=== PATIENT | female | born 1940 | race Caucasian/White ===

== ENCOUNTER → 2021-02-20 | Outpatient (CLI) | payer MEDICARE ==
--- NOTE | 2021-02-20 09:08 | REPVR ---
PROCEDURE INFORMATION: Exam: CT Head Without Contrast Exam date and time: 02/20/2021 8:46 AM Age: 80 years old Clinical indication: Screening exam; Additional info: Alzheimer's disease with late onset TECHNIQUE: Imaging protocol: Computed tomography of the head without contrast. Radiation optimization: All CT scans at this facility use at least one of these dose optimization techniques: automated exposure control; mA and/or kV adjustment per patient size (includes targeted exams where dose is matched to clinical indication); or iterative reconstruction. COMPARISON: No relevant prior studies available. FINDINGS: Brain: There is no acute intracranial hemorrhage. There is lucency in the cerebral white matter, likely microvascular disease although non-specific. Jimenez white differentiation is intact. There are no extra-axial fluid collections. No evidence of mass. There is no mass effect or midline shift. Cerebral ventricles: The ventricles and sulci are enlarged, consistent with moderate volume loss / atrophy. No hydrocephalus. Bones/joints: No acute fracture. Paranasal sinuses: There is left sphenoid sinus retention cyst or polyp. Mastoid air cells: No significant mastoid effusion. Vasculature: There is vascular calcification. Soft tissues: Unremarkable as visualized. IMPRESSION: 1. No evidence of acute intracranial abnormality. No evidence of acute infarction, hemorrhage, or mass. 2. Atrophy and microvascular disease. Electronically signed by: Betsey Simmons On 02/20/2021 09:07:10 AM
== END ==
LOC: M RAD 08:13
DX: G30.1 Alzheimer's disease with late onset (principal); F02.81 Dementia in other diseases classified elsewhere, unspecified severity, with behavioral disturbance

== ENCOUNTER 2021-04-25 07:22 | Emergency (ER) | payer MEDICARE ==
[~2021-04-25] VITALS: Ht 162.6 cm; Wt 63.6 kg
[2021-04-25] MEDS ORDERED: OMEP-218 PO (07:55)
[2021-04-25] MEDS ORDERED: ACET-907 PO (07:55)
[2021-04-25] MEDS ORDERED: QUET25TA3 PO (07:55)
[2021-04-25] MEDS ORDERED: ATOR1TAB19 PO (07:55)
[2021-04-25] MEDS ORDERED: AMLO1TAB24 PO (07:55)
[2021-04-25] MEDS ORDERED: VITA1CAP25 PO (07:55)
[2021-04-25 08:09] LABS: BASO % 0.4 % (0.0-1.0); EOS # 0.1 10^3/uL (0.0-0.5); EOS % 0.9 % (0.0-3.0); HEMATOCRIT 35.8 % (36.0-47.0); HEMOGLOBIN 11.2 g/dl (12.0-15.5); LYMPH # 1.2 10^3/uL (1.5-5.0); LYMPH % 12.7 % (24.0-44.0); MEAN CORPUSCULAR HEMOGLOBIN 29.4 pg (27.0-33.0); MEAN CORPUSCULAR HGB CONC 31.3 g/dl (32.0-36.5); MONO # 0.8 10^3/uL (0.0-0.8); MONO % 7.9 % (2.0-8.0); NEUTROPHILS # 7.5 10^3/uL (1.5-8.5); NEUTROPHILS % 77.2 % (36.0-66.0); PLATELET COUNT, AUTOMATED 301 10^3/uL (150-450); RED BLOOD COUNT 3.81 10^6/uL (4.00-5.40); WHITE BLOOD COUNT 9.7 10^3/uL (4.0-10.0)
--- NOTE | 2021-04-25 08:27 | REPVR ---
PROCEDURE INFORMATION: Exam: CT Head Without Contrast Exam date and time: 04/25/2021 8:03 AM Age: 80 years old Clinical indication: Injury or trauma; Fall; Blunt trauma (contusions or hematomas) TECHNIQUE: Imaging protocol: Computed tomography of the head without contrast. Radiation optimization: All CT scans at this facility use at least one of these dose optimization techniques: automated exposure control; mA and/or kV adjustment per patient size (includes targeted exams where dose is matched to clinical indication); or iterative reconstruction. COMPARISON: CT Head without contrast 02/20/2021 8:33 AM FINDINGS: Brain: There is no acute intracranial abnormality. Moderate small vessel ischemic changes are seen. There is no mass, midline shift, or mass effect. Jimenez-white matter differentiation is preserved. There is no evidenc old lacunar infarct in left thalamus. e of hemorrhage. There is no extra-axial fluid collection. Basal cisterns are patent. Cerebral ventricles: Moderate prominence of ventricles and sulci representing volume loss. Paranasal sinuses: Visualized sinuses are unremarkable. No fluid levels. Mastoid air cells: Visualized mastoid air cells are well aerated. Bones/joints: Unremarkable. No acute fracture. Soft tissues: Unremarkable. IMPRESSION: 1. Moderate volume loss and small vessel ischemic changes. 2. No acute intracranial abnormality. Electronically signed by: Michelle Schroeder On 04/25/2021 08:27:29 AM
--- NOTE | 2021-04-25 08:29 | REPVR ---
PROCEDURE INFORMATION: Exam: CT Cervical Spine Without Contrast Exam date and time: 04/25/2021 8:03 AM Age: 80 years old Clinical indication: Injury or trauma; Fall; Blunt trauma TECHNIQUE: Imaging protocol: Computed tomography images of the cervical spine without contrast. Radiation optimization: All CT scans at this facility use at least one of these dose optimization techniques: automated exposure control; mA and/or kV adjustment per patient size (includes targeted exams where dose is matched to clinical indication); or iterative reconstruction. COMPARISON: CT Head without contrast 02/20/2021 8:33 AM FINDINGS: Bones/joints: No acute fracture. Minimal anterolisthesis of C2 on C3 and C7 on T1. The diffuse demineralization of the bones. Degenerative changes with mild anterior osteophyte formation, loss of disc spaces, and facet joint arthropathy. Partial bony union at C4/C5. Discs/Spinal canal/Neural foramina: Mild posterior disc osteophyte formation at multiple levels causing minimal indentation on thecal sac. The the the the the. The Lungs: Lung apices are normal. Soft tissues: Unremarkable. IMPRESSION: No acute findings. Electronically signed by: Michelle Schroeder On 04/25/2021 08:29:19 AM
[2021-04-25 08:36] LABS: ALT/SGPT 20 U/L (12-78); BILIRUBIN,DIRECT < 0.1 MG/DL (0.0-0.2); BILIRUBIN,TOTAL 0.7 MG/DL (0.2-1.0); BLOOD UREA NITROGEN 15 MG/DL (7-18); CARBON DIOXIDE LEVEL 28 MEQ/L (21-32); CHLORIDE LEVEL 110 MEQ/L (98-107); CK-MB VALUE MASS < 1.0 NG/ML (<3.6); CPK CREATINE PHOSPHOKINASE 72 U/L (26-192); CREATININE FOR GFR 0.89 MG/DL (0.55-1.30); FREE T4 1.23 NG/DL (0.76-1.46); GLOMERULAR FILTRATION RATE > 60.0 (>32); GLUCOSE, FASTING 98 MG/DL (70-100); LIPASE 57 U/L (73-393); MB/CK RELATIVE INDEX 1.39 (< OR =4); POTASSIUM SERUM 4.3 MEQ/L (3.5-5.1); SODIUM LEVEL 144 MEQ/L (136-145); TOTAL PROTEIN 6.7 GM/DL (6.4-8.2); TROPONIN I < 0.02 NG/ML (< 0.10)
--- NOTE | 2021-04-25 08:42 | REP ---
INDICATION: trauma COMPARISON: None. TECHNIQUE: Internal rotation, external rotation, and Y view. FINDINGS: Age-related osteopenia and degenerative changes are appreciated. The acromioclavicular and glenohumeral joints are intact. There is no evidence for acute fracture or dislocation. Subacromial space is normal. No periarticular calcifications or loose bodies are identified. IMPRESSION: Age-related changes. No acute fracture or dislocation. <Electronically signed by Cosme Castellanos > 04/25/21 [id number]
--- NOTE | 2021-04-25 08:43 | REP ---
INDICATION: trauma COMPARISON: None. TECHNIQUE: Frontal view of the pelvis with neutral and frog lateral views of the left hip. FINDINGS: Age-related osteopenia and degenerative changes are noted throughout the visualized lower lumbar spine, pelvis and hips. No obvious acute fracture or dislocation. Surrounding soft tissues are unremarkable. IMPRESSION: No acute fracture or dislocation. <Electronically signed by Cosme Castellanos > 04/25/21 [id number]
--- NOTE | 2021-04-25 08:43 | REP ---
INDICATION: CHEST PAIN. COMPARISON: 11/29/2013 TECHNIQUE: PA and lateral FINDINGS: There is mild cardiomegaly. This has developed since the last exam. There is a sub cm sized potential new nodule in the left upper lobe. Lung ohara are otherwise stable and clear. The pleural angles are sharp. There is no significant change in appearance of the osseous structures. IMPRESSION: 1. Possible new left lung nodule as described above. This warrants CT. 2. Cardiomegaly <Electronically signed by Ron Varghese > 04/25/21 [id number]
[2021-04-25] MEDS ORDERED: ISOVUE-370 76% 100ML VIAL As Ordered ONE (08:57)
[2021-04-25 09:21] VITALS: O2SAT 98
--- NOTE | 2021-04-25 09:28 | REP ---
INDICATION: chest pain eval lung nodule. COMPARISON: None. TECHNIQUE: Contrast dose: 75 ML of Isovue [address] technique: Helical scanning is acquired and overlapping 1.5 mm and contiguous 3 mm axial images are reformatted. In addition, maximum intensity projection and multiplanar re-formation images are generated in sagittal and coronal imaging projections. FINDINGS: There is good opacification in the pulmonary arterial tree. There is no evidence of vessel cut off or filling defect to suggest pulmonary embolus. Homogeneous opacity is seen in the thoracic aorta. There is no evidence of aneurysm or dissection. There is no evidence of pleural or pericardial effusion. There is a nodule along the posterior aspect of the left thyroid gland at the thoracic inlet. No thoracic adenopathy is seen. There is mild cardiomegaly. Lung window settings demonstrate there is a zone of discoid atelectasis in the right middle lobe. Minimal subsegmental atelectasis is seen in the right lower lobe posteriorly. No infiltrate, mass, or significant pulmonary nodule is appreciated. No bony destructive lesion is seen. In the upper abdomen, normal adrenal glands are observed. The visualized upper abdominal structures are unremarkable. There is a dextroconvex thoracic curvature. IMPRESSION: No CT evidence of pulmonary embolus. Cardiomegaly. Scoliosis. Otherwise no acute disease. <Electronically signed by Jesus Sears > 04/25/21 [id number]
[2021-04-25] MEDS ORDERED: ACETAMINOPHEN TAB 650MG DOSE (2X325MG) PO ONE (09:35)
--- NOTE | 2021-04-25 11:24 | ECGEPIP ---
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
--- NOTE | 2021-04-25 11:25 | ECGEPIP ---
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
[2021-04-25 14:05] LABS: CK-MB VALUE MASS 3.8 NG/ML (<3.6); MB/CK RELATIVE INDEX 3.25 (< OR =4); TROPONIN I 0.02 NG/ML (< 0.10)
[2021-04-25] MEDS ORDERED: QUEtiapine FUMARATE 12.5 MG HALF-TAB PO ONE (15:00)
[2021-04-25 16:00] VITALS: BP 138/74
--- NOTE | 2021-04-26 17:54 | ECGEPIP ---
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
== END 2021-04-25 16:18 | disposition home or self-care (01) ==
LOC: M ED 07:22 → EDBD 07:22 → M ED 16:18
DX: R07.9 Chest pain, unspecified (principal); I44.7 Left bundle-branch block, unspecified; M25.512 Pain in left shoulder; M25.552 Pain in left hip; I10 Essential (primary) hypertension; K21.9 Gastro-esophageal reflux disease without esophagitis; G30.9 Alzheimer's disease, unspecified; I51.7 Cardiomegaly; M41.9 Scoliosis, unspecified; Z88.0 Allergy status to penicillin; Z88.8 Allergy status to other drugs, medicaments and biological substances
CPT/HCPCS: 36415; 70450; 71046; 71275; 72125; 73030; 73502; 80048; 80076; 82550; 82553; 83690; 84439; 84443; 84484; 85025; 93005; 93041; 94760; 99285; Q9967

== ENCOUNTER → 2021-05-30 | Outpatient (CLI) | payer MEDICARE ==
[~2021-05-30] MED LIST: ACET-907 PO; AMLO1TAB24 PO; ATOR1TAB19 PO; OMEP-218 PO; QUET25TA3 PO; VITA1CAP25 PO
--- NOTE | 2021-05-30 12:14 | REP ---
INDICATION: NEOPLASM UNCERTAIN BEHAVIOR OF TRACHEA/BRONCH/LUNG COMPARISON: 04/25/2021 a contrast-enhanced CT angio chest. TECHNIQUE: Standard helical technique without intravenous contrast. FINDINGS: Allowing for the differences in the technical factors between the examinations the mediastinum and pulmonary candy appear stable. There are no pleural or pericardial effusions. Respiratory motion artifact obscures the detail on the imaged upper abdomen. No significant changes evident. There is no significant change in appearance of the imaged osseous structures. Evaluation of the lung ohara shows a pleural-based 8 mm size right lower lobe nodule previously obscured by respiratory motion artifact. There is a large but partially obscured spiculated pleural based nodule in the right upper lobe which measures approximately 1.8 by 1.9 cm. This represents a change compared to the prior exam. Respiratory motion artifact could obscure multiple smaller nodules. IMPRESSION: 1. New spiculated right upper lobe nodule as described above. 2. Right lower lobe pleural base nodule as described above. 3. Other findings and limitations as described above. 4. Repeat with contrast-enhanced chest CT and elimination of motion artifact. 5. Inflammatory versus neoplastic change. Consider CT-PET. <Electronically signed by Ron Varghese > 05/30/21 [id number]
== END ==
LOC: M PLAIMG 09:59
PROVIDERS: ATTEND Family Medicine
DX: D38.1 Neoplasm of uncertain behavior of trachea, bronchus and lung (principal)

== ENCOUNTER 2021-09-04 15:23 | Emergency (ER) | payer MEDICARE ==
[~2021-09-04] VITALS: Ht 162.6 cm; Wt 68.2 kg
[~2021-09-04 15:23] MED LIST changes: +QUET1TAB17 PO; -QUET25TA3 PO
[2021-09-04] MEDS ORDERED: NS 500 ML IV ONE (16:00)
[2021-09-04 16:41] LABS: BASO % 0.7 % (0.0-1.0); EOS # 0.1 10^3/uL (0.0-0.5); EOS % 1.4 % (0.0-3.0); HEMATOCRIT 42.7 % (36.0-47.0); HEMOGLOBIN 13.7 g/dl (12.0-15.5); LYMPH # 1.5 10^3/uL (1.5-5.0); LYMPH % 19.8 % (24.0-44.0); MEAN CORPUSCULAR HEMOGLOBIN 29.7 pg (27.0-33.0); MEAN CORPUSCULAR HGB CONC 32.1 g/dl (32.0-36.5); MEAN CORPUSCULAR VOLUME 92.4 fl (80.0-96.0); MONO # 0.7 10^3/uL (0.0-0.8); MONO % 9.3 % (2.0-8.0); NEUTROPHILS # 5.2 10^3/uL (1.5-8.5); NEUTROPHILS % 68.3 % (36.0-66.0); PLATELET COUNT, AUTOMATED 347 10^3/uL (150-450); RED BLOOD COUNT 4.62 10^6/uL (4.00-5.40); WHITE BLOOD COUNT 7.6 10^3/uL (4.0-10.0)
[2021-09-04 16:42] LABS: BASO # 0.1 10^3/uL (0.0-0.2)
[2021-09-04] MEDS ORDERED: LORazepam 2 MG/ML VIAL IV STA ×2 (16:55→17:33)
[2021-09-04 17:16] LABS: RSV AMPLIFICATION NEGATIVE (NEGATIVE)
--- NOTE | 2021-09-04 17:21 | REP ---
INDICATION: abdominal pain. COMPARISON: 04/25/2021 latest prior TECHNIQUE: Portable FINDINGS: The technique utilized in obtaining the radiograph has magnified the cardiac silhouette and accentuated the interstitial markings. Cardiomediastinal silhouette lung ohara are unchanged. There are no acute patchy parenchymal opacities or pleural effusions. There is mild to moderate cardiomegaly accentuated by technique but the left ventricular configuration status quo. There is no significant change in appearance of the lung bases. IMPRESSION: Stable appearing chronic changes. <Electronically signed by Ron Varghese > 09/04/21 [id number]
[2021-09-04 17:42] LABS: ALBUMIN 3.8 GM/DL (3.2-5.2); ALT/SGPT 27 U/L (12-78); AMYLASE 56 U/L (25-115); BILIRUBIN,DIRECT 0.2 MG/DL (0.0-0.2); BILIRUBIN,TOTAL 0.9 MG/DL (0.2-1.0); CK-MB VALUE MASS < 1.0 NG/ML (<3.6); CPK CREATINE PHOSPHOKINASE 58 U/L (26-192); LIPASE 51 U/L (73-393); MB/CK RELATIVE INDEX 1.72 (< OR =4); TOTAL PROTEIN 8.5 GM/DL (6.4-8.2); TROPONIN I 0.03 NG/ML (< 0.10)
[2021-09-04] MEDS ORDERED: ISOVUE-370 76% 100ML VIAL As Ordered ONE (17:54)
[2021-09-04 18:07] VITALS: BP 169/95
--- NOTE | 2021-09-04 18:21 | REPVR ---
PROCEDURE INFORMATION: Exam: CT Abdomen And Pelvis With Contrast Exam date and time: 09/04/2021 6:01 PM Age: 81 years old Clinical indication: Abdominal pain; Generalized TECHNIQUE: Imaging protocol: Computed tomography of the abdomen and pelvis with contrast. Radiation optimization: All CT scans at this facility use at least one of these dose optimization techniques: automated exposure control; mA and/or kV adjustment per patient size (includes targeted exams where dose is matched to clinical indication); or iterative reconstruction. Contrast material: ISOVUE 370; Contrast volume: 100 ml; Contrast route: INTRAVENOUS (IV); COMPARISON: CR Hip,AP,LAT to include Pelvis LEFT 04/25/2021 8:02 AM FINDINGS: Lungs: No suspicious mass or airspace process in the visualized lung bases. Liver: Liver appears normal with no focal abnormality. Gallbladder and bile ducts: Gallstones are present in the gallbladder lumen. No adjacent fluid or duct dilatation. Pancreas: Pancreas appears normal. No focal mass or peripancreatic inflammation. Spleen: Spleen appears homogeneous without focal mass. Adrenal glands: Adrenal glands are normal in appearance. Kidneys and ureters: Kidneys appear normal, with no stone, solid mass or hydronephrosis. Stomach and bowel: No evidence of small bowel obstruction. No evidence of acute diverticulitis. Large volume of stool is seen throughout the colon. Appendix: Appendix is not visualized convincingly. Intraperitoneal space: No pneumoperitoneum. Vasculature: Atherosclerotic change present in the aorta, without aneurysm. Main portal and splenic veins enhance normally. Lymph nodes: . No enlarged lymph nodes. Urinary bladder: Urinary bladder appears normal. Reproductive: Uterus is surgically absent. Bones/joints: Degenerative changes are seen in the lumbar spine with disc height loss, endplate osteophytes and hypertrophic facet arthropathy. Soft tissues: Unremarkable. Other findings: Exam is limited due to patient motion. IMPRESSION: 1. Limited study secondary to gross patient motion. 2. Cholelithiasis without evidence of biliary obstruction. 3. Prominent colonic stool suggesting perhaps an element of constipation Electronically signed by: Meño Torrez On 09/04/2021 18:21:29 PM
[2021-09-04] MEDS ORDERED: MAGNESIUM CITRATE 300 ML BTL PO ONE (19:00)
[2021-09-04] MEDS ORDERED: COLA100C5 PO (19:03)
--- OUTSIDE RECORDS SUMMARY | 2021-09-04 19:21 | CCD | Summary of Care ---
Author Author [facility] Address Unknown Phone Unavailable Care Team Providers Care Vending Machine Technician Name Role Phone Carmine Chavira DO PCP Reason for Visit * Reason Comments Follow-up Encounter Details Care Team Description Date Type Department Mamta Quick MD 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 [address] [facility] [place] [address] Allergies Comments Active Allergy Reactions Severity Noted Date Atenolol 11/20/2016 Cannot remember Darvon 01/28/2013 headaches Donepezil 08/02/2019 Nausea, vomiting Paroxetine 11/20/2016 Penicillins Anaphylaxis High 01/28/2013 hyper Pentobarbital Sodium 01/28/2013 Headaches Bupropion 11/20/2016 documented as of this encounter (statuses as of 06/29/2021) Medications End Date Status Medication Sig Dispensed Refills Start Date Active omeprazole (PRILOSEC) 20 Take 20 mg by 0 MG capsule mouth Two Times Daily Active Acetaminophen (TYLENOL 8 Take 650 mg 0 HOUR PO) by mouth every 8 (eight) hours as needed. Active Cholecalciferol (VITAMIN Take 1 tablet 0 D3) 2000 units TABS by mouth daily as needed Active amlodipine (NORVASC) 5 MG Take 5 mg by 0 tablet mouth daily Active Melatonin 5 MG Oral Take by mouth 0 Capsule Active QUEtiapine Fumarate 25 MG Take 1 tablet 45 tablet 0 Oral Tablet (SEROquel) by mouth Two 1 Times Daily Give 12.5 mg QAM , can use 12.5 mg PRN AM if difficult behaviors and 25mg PM 06/29/2021 Discontinued QUEtiapine Fumarate 25 MG Give 1/2 tab 45 tablet 0 Oral Tablet (SEROquel) AM and 25mg 1 PM documented as of this encounter (statuses as of 06/29/2021) Active Problems Problem Noted Date Frequent falls 08/17/2020 Abnormality of gait due to impairment of balance Cystocele 08/17/2020 Overview: Formatting of this note might be differ ent from the original. Status post vaginal hysterectomy, anter ior/posterior colporrhaphy plus enterocele repair and sling cystoscopy in January 2015 at [facility] GERD without esophagitis 08/17/2020 Mixed stress and urge urinary incontinence 0 Alzheimer's dementia with behavioral disturbance Overview: Formatting of this note might be differ ent from the original. First diagnosed in October 2017-started on Aricept-but had to be switched to galantamine due to severe headaches. MRI brain showed diffuse atrophy, moderate chronic microvascular white ma tter ischemic changes [December 2016] Now on galantamine 24 mg daily, Namenda 10 mg twice daily [started in November 2018] MMSE 23/30, 3 MS 73/100 in October 2016 MMSE 23/30, 3 MS 66/100-May 2017 MMSE 19/30, 3 MS 55/100-November 2018 Mixed hyperlipidemia 03/13/2017 Anxiety and depression 01/10/2017 Overview: Formatting of this note might be differ ent from the original. On sertraline Essential hypertension 11/21/2016 Chronic midline low back pain without sciatica 11/21 Uterovaginal prolapse, complete 01/27/2015 Overview: Formatting of this note might be differ ent from the original. Status post vaginal hysterectomy, anter ior/posterior colporrhaphy plus enterocele repair and sling cystoscopy in January 2015 at [facility] Rectocele 01/27/2015 Rotator cuff impingement syndrome of right shoulder 08/05/2014 Lumbar spondylosis 01/07/2013 Overview: Formatting of this note might be differ ent from the original. With right L3 radiculopathy-with histor y of L4-L5 fusion in the and history of multiple bilateral L5-S1 fac et joint injections documented as of this encounter (statuses as of 06/29/2021) Resolved Problems Problem Noted Date Resolved Date MCI (mild cognitive impairment) with memory loss 7 08/17/2020 documented as of this encounter (statuses as of 06/29/2021) Immunizations Name Administration Dates Next Due documented as of this encounter Social History Date Tobacco Use Types Packs/Day Years Used Never Smoker Smokeless Tobacco: Never Used Comments Alcohol Use Standard Drinks/Week No 0 (1 standard drink = 0.6 o z pure alcohol) Sex Assigned at Date Recorded Not on file Date Recorded COVID-19 Exposure Response 06/29/2021 8:56 AM EDT In the last month, have you been in contact with No / Unsure someone who was confirmed or suspected to have Coronavirus / COVID-19? documented as of this encounter Last Filed Vital Signs Not on filedocumented in this encounter Progress Notes * Mamta Quick MD - 06/29/2021 9:30 AM EDT This is a tele-medical visit. The patient/family was informed of the risks inclu ding security breach, technological failure, inability to perform a comprehensiv e physical exam which could delay or prevent an accurate diagnosis, and potentia l complications from treatment decisions rendered over a telemedical platform. T he patient /family understands and consented to the use of tele-health services. The service was provided by means of an audio/video telecommunication. Reason for visit: Follow up Additional Providers: Carmine Chavira DO HPI: Mrs Asencio is an 80 year old lady with h/o medical problems as listed below who was seen as a telemedicine visit for follow up of dementia. Most of the visit w as with her Keny and daughter Shayy, as she was confused and had a rough start to the day today. She has been followed up in our office since 2017 for cognitive changes which wa s initially thought to be MCI and later transitioned to dementia. She was on Ariel cept initially which was changed over to Galantamine( due to headaches) and also on Memantine since 2019. She was followed by Erica Reyna and I assumed her care in July 2020 . She continued to have a steady decline cognitively, functionally and with behavi oral problems. She was last seen by me as a telemedicine visit in February 2021, at [facility] time, it was decided to taper her off galantamine and Namenda and also even tually sertraline and was started on Seroquel( for management of difficult behav iors). Summary of cognitive tests so far: MMSE 23/30, 3MS 73/100- October 2016 MMSE 23/30, 3MS 66/100- May 2017 MMSE 25/20- October 2017 MMSE 19/30, 3MS 55/100- Nov 2018 MMSE 13/30 3MS 40/100- July 2020 Interim events since last visit in February 2021: The dose of her Seroquel had to be increased to add 12.5 mg of Seroquel as well, due to increased behavioral problems. She was hospitalized about a month ago due to a fall- work up showed evidence of a spiculated lung nodule, suspicious for malignancy- family decided against further work up to minimize any aggressive t reatments. She has been off galantamine, memantine and sertraline. Cognitively, she continues to be forgetful. Even though she interacts with her family, unclear how much she recognizes them. Functionally, she is now dependent on most of BADL's as well- needing active ass istance from family for personal care, hygiene and dressing. Still able to feed independently and able to ambulate independently without any assist devices( gabriela n though gait is slow and shuffling). Her Keny continues to be her pr imary caregiver with some help from a neighbor friend who is an [employer]PER and Keny' s sister. She has urinary and fecal incontinence as well. Behaviorally, she continues to have difficult behavior, being angry and agitated at times, constantly referring to going home, when she is already home etc. Her behaviors used to be more during the evening hours, but now, it does not really follow a set pattern. She is starting to have behavioral issues during the day as well. No issues with sleep. No changes in weight or appetite. Past Medical History/Past surgical History: Anxiety and depression Hyperlipidemia Alzheimer's dementia with behavioral disturbance-first diagnosed in October 2017 -started on Aricept-but had to be switched to galantamine due to severe headache s. MRI brain showed diffuse atrophy, moderate chronic microvascular white ma tter ischemic changes [December 2016]-on galantamine 24 mg daily, Namenda 10 mg twi ce daily [started in November 2018] Frequent falls Gait instability Cystocele Mixed stress and urge urinary incontinence Urine uterovaginal prolapse complete Rectocele Essential hypertension Lumbar spondylosis Allergies: Penicillins, Atenolol, Darvon, Donepezil, Paroxetine, Sodium pentobarbital [pent obarbital sodium], and Wellbutrin [bupropion] Medications: Medication Sig Acetaminophen (TYLENOL 8 HOUR PO) Take 650 mg by mouth every 8 (eight) hours as needed. amlodipine (NORVASC) 5 MG tablet Take 5 mg by mouth daily Cholecalciferol (VITAMIN D3) 2000 units TABS Take 1 tablet by mouth daily as nee ded Melatonin 5 MG Oral Capsule Take by mouth omeprazole (PRILOSEC) 20 MG capsule Take 20 mg by mouth Two Times Daily Atorvastatin Calcium 10 MG Oral Tablet (LIPITOR) TAKE 1 TABLET BY MOUTH EVERY E VENING QUEtiapine Fumarate 25 MG Oral Tablet (SEROquel) Give 1/2 tab AM and 25mg PM Social History/Family History: Retired holistic specialist. Lives in [facility] her Keny with whom she has been for the past 51 years. She is her primary caregiver. They have 3 children-2 daughters Casi and Shayy and 1 son dT- he spends the winter months with their parents. Does not smoke or use alcohol or any recreational drugs. No h/o dementia in family. Physical Examination: Appears frail Answers simple questions, confused Detailed physical exam not done due to telemedicine visit?? Previous Labs/Imaging: MRI BRAIN(01/02/2017): Diffuse atrophy. Moderate chronic microvascular white matter ischemic changes CT head 02/20/2021: No evidence of acute intracranial abnormality. No evidence of acute infarction, hemorrhage or mass. Atrophy and microvascular disease. Assessment and Plan: Briefly Mrs Asencio is an 80 year old lady with h/o medical problems as listed a becky who was seen as telemedicine visit for follow up: # Alzheimer's dementia with behavioral disturbances: - has had a steady cognitive decline ever since diagnosis with increasing behavi oral symptoms. - on Seroquel 12.5 mg Q AM and 25 mg Q PM at night- will increase to 25 mg BID, with instructions given for continuing 12.5 mg QAM and to have 12.5 mg to be use d as needed during the day. - non pharmacological techniques remain the ramos management - also discussed about the need for having either 24X7 care at home versus upgra ding level of care, given her increasing care needs - they would really like to keep her home, but have financial restraints [facility] 24X7 care at home. Will have social work consultation to help family with res ources and planning [facility]. # Goals of care/Advance care planning: - her Keny is her health care proxy. MOLST form not filled out before . - discussed about goals of care- plans for a more palliative approach to limited medical interventions only, no resuscitation, no feeding tube. This was discuss ed and MOLST form signed reflecting these wishes based on verbal consent. Will m ail the form to them after the visit. Follow Up: 6 months or earlier as needed Certain parts of this note may have been carried over from prior notes to [place] in accuracy of patient's pertinent medical history and continuity of care. The d etails were verified and edited as appropriate Total time spent during this evaluation: 40 minutes of which at least 15 minutes were spent for advance care planning, finalization of MOLST form documented in this encounter Plan of Treatment Health Maintenance Due Date Last Done Comments MMR Vaccines (1 of 1 - 1941 Standard series) DTaP,Tdap,and Td Vaccines 1947 (1 - Tdap) Osteoporosis Screening 2 2005 yr Pneumococcal Vaccine: 65+ 2005 Years (1 of 1 - PPSV23) Varicella Vaccines (1 of 01/13/2020 11/18/2019, 2 - 2-dose childhood 09/17/2019 series) Influenza Vaccine 07/27/2021 07/19/2020, 08/24/2019, 08/04/2018, Additional history exists Zoster Vaccines Completed 11/18/2019, 09/17/2019 COVID-19 Vaccine Completed 01/05/2021, 12/08/2020 HIB Vaccines Aged Out No longer eligible based on patient's age to complete this topic Hepatitis A Vaccines Aged Out No longer eligibl e based on patient's age to complete this topic Hepatitis B Vaccines Aged Out No longer eligibl e based on patient's age to complete this topic IPV Vaccines Aged Out No longer eligible based on patient's age to complete this topic Pneumococcal Vaccine: Aged Out No longer eligib le based on patient's age to Pediatrics (0 to 5 Years) complete this topic and At-Risk Patients (6 to 64 Years) documented as of this encounter Results Not on filedocumented in this encounter Visit Diagnoses Diagnosis Late onset Alzheimer's disease with beh avioral disturbance - Primary documented in this encounter
--- NOTE | 2021-09-04 19:45 | ECGEPIP ---
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
== END 2021-09-04 19:30 | disposition home or self-care (01) ==
LOC: EDBD 15:23 → M ED 15:23
DX: R10.9 Unspecified abdominal pain (principal); K59.00 Constipation, unspecified; I10 Essential (primary) hypertension; Z88.0 Allergy status to penicillin; Z88.8 Allergy status to other drugs, medicaments and biological substances
CPT/HCPCS: 71045; 74177; 80047; 80076; 82150; 82550; 82553; 83605; 83690; 84484; 85025; 87040; 87631; 93005; 93041; 96361; 96374; 96376; 99285; J2060; Q9967